=== PATIENT | female | born 1985 | race Caucasian/White ===

== ENCOUNTER 2016-07-24 01:30 | Emergency (ER) | payer MEDICAID ==
[~2016-07-24] VITALS: Ht 154.9 cm; Wt 117.5 kg
[~2016-07-24 01:30] MED LIST: BACTDS PO; CEPH-443 PO; HYDR-906 PO; IBUP-1542 PO; ONDA4TAB14 PO; PREN1TAB17 PO
[2016-07-24 01:33] VITALS: Ht 154.9 cm; Wt 117.5 kg
[2016-07-24] MEDS ORDERED: morphine 4 MG/ML VIAL IV STA (02:07)
[2016-07-24] MEDS ORDERED: SOD CHLORIDE 0.9% 1,000 ML IV STA (02:07)
[2016-07-24] MEDS ORDERED: ONDANSETRON 4 MG INJ IV STA (02:07)
[2016-07-24 02:32] VITALS: BP 98/64; PULSE 80; RESP 16
--- NOTE | 2016-07-24 02:45 | RADRPT ---
PROCEDURE: Abdominal ultrasound, limited. CLINICAL INDICATION: Abdominal pain. TECHNIQUE: Multiple real-time images were acquired of the patient's right upper abdomen utilizing a high resolution transducer. COMPARISON: 02/23/2016. FINDINGS: The liver demonstrates normal echogenicity and size measuring 16.4 cm. There is no focal mass or in trahepatic biliary ductal dilatation. The portal vein is patent. The gallbladder is not distended. Multiple echogenic gallstones are identified. There is no pericholecystic fluid or gallbladder wa ll thickening. The common bile duct measures 4.5 mm in maximal dimension. The visualized portions of the pancreas are unremarkable. No free fluid is identified. The right kidney is normal size and echogenicity measuring 10.5 cm. There is no focal renal mass or echogenic calculus identified. There is no obstructive uropathy. IMPRESSION: Cholelithiasis without ultrasound evidence of cholecystitis. .Jw Moore MD, MD Date Time Electronically viewed and signed by .Jw Moore MD, on 07/24/2016 02:45 .T/
--- NOTE | 2016-07-24 02:49 | ERD ---
ER Documentation Chief Complaint Date/Time DATE: 07/24/16 TIME: 02:48 Chief Complaint right upper abdominal pain with radiation to mid back and nausea [employer] EXEC[employer]IVE HPI This is a 31 year from radical abdominal pain radiation to mid back. She had mild nausea as well. No fevers or chills. No other current complaints. Pain is mild to moderate in intensity. Located in the right upper quadrant pain radiates to back. No other current problems. ROS All systems reviewed and are negative except as per history of present illness. Medications Home Meds Active Scripts Ibuprofen* (Motrin*) 600 Mg Tab, 600 MG PO Q6, #15 TAB Prov:BRENDAN CALI MD 05/22/16 Cephalexin* (Keflex*) 500 Mg Capsule, 500 MG PO QID for 7 Days, CAP Prov:BRENDAN CALI MD 05/22/16 Sulfamethoxazole-Trimethoprim* (Bactrim* DS) 800-160 Mg Tab, 1 TAB PO BID for 7 Days, TAB Prov:BRENDAN CALI MD 05/22/16 Ondansetron (Ondansetron Odt) 4 Mg Tab.rapdis, 4 MG PO Q6H Y for NAUSEA AND/OR VOMITING, #14 TAB Prov:YOLY BCUIO PA-C 02/23/16 Hydrocodone/Acetaminophen ([place] 5-325 Tablet) 1 Each Tablet, 1 EACH PO Q6 Y for PAIN, #30 TAB Prov:YOLY BUCIO PA-C 02/23/16 Reported Medications Vit-Iron Fumarate-FA ( Tablet) 1 Each Tablet, 1 EACH PO DAILY 03/09/13 Vit-Iron Fumarate-FA ( Tablet) 1 Each Tablet, 1 EACH PO DAILY 01/09/13 Allergies Allergies: Coded Allergies: No Known Allergies (Verified Allergy, Mild, 03/09/13) PMhx/Soc History of Surgery: Yes (c/section x3) Anesthesia Reaction: No Hx Neurological Disorder: No Hx Respiratory Disorders: No Hx Cardiac Disorders: No Hx Psychiatric Problems: No Hx Miscellaneous Medical Probl: Yes (Gallstones) Hx Alcohol Use: No Hx Substance Use: No Hx Tobacco Use: No Smoking Status: Never smoker Physical Exam Vitals Vital Signs Date Time Temp Pulse Resp B/P Pulse Ox O2 Delivery O2 Flow Rate FiO2 07/24/16 02:32 80 16 98/64 100 Room Air 07/24/16 01:33 98.8 84 20 94/58 100 Physical Exam Const: [] Head: Atraumatic Eyes: Normal Conjunctiva ENT: Normal External Ears, Nose and Mouth. Neck: Full range of motion..~ No meningismus. Resp: Clear to auscultation bilaterally Cardio: Regular rate and rhythm, no murmurs Abd: Soft, non tender, non distended. Normal bowel sounds Skin: No petechiae or rashes Back: No midline or flank tenderness Ext: No cyanosis, or edema Neur: Awake and alert Psych: Normal Mood and Affect Results 24 hrs Current Medications Medications (Trade) Dose Ordered Sig/Laith Route PRN Reason Start Time Stop Time Status Last Admin Dose Admin Sodium Chloride (NS) 1,000 ml @ 1,000 mls/hr Q1H STAT IV 07/24/16 02:07 07/24/16 03:06 07/24/16 02:22 Morphine Sulfate (morphine) 4 mg ONCE STAT IV 07/24/16 02:07 07/24/16 02:08 DC 07/24/16 02:23 Ondansetron HCl (Zofran Inj) 4 mg ONCE STAT IV 07/24/16 02:07 07/24/16 02:08 DC 07/24/16 02:22 Procedures/MDM Medical decision-making: Patient has gallstones and biliary colic. No evidence of cholecystitis. Patient will be discharged home. Return in 8 hours for serial abdominal exams. Departure Diagnosis: Primary Impression: Gallstones Condition: Stable ELIJAH CHATTERJEE Jul 24, 2016 02:49
[2016-07-24 02:50] LABS: BASOPHILS % 0.4 % (0.0-2.0); EOSINOPHILS # 0.2 10^3/ul (0.0-0.5); EOSINOPHILS % 2.1 % (0.0-7.0); HEMATOCRIT 40.1 % (37.0-47.0); HEMOGLOBIN 13.5 g/dl (12.0-16.0); LYMPHOCYTES # 2.4 10^3/ul (0.8-2.9); LYMPHOCYTES % 26.1 % (15.0-51.0); MEAN CORPUSCULAR HEMOGLOBIN 28.6 pg (29.0-33.0); MEAN CORPUSCULAR HGB CONC 33.6 g/dl (32.0-37.0); MEAN CORPUSCULAR VOLUME 85.1 fl (82.0-101.0); MEAN PLATELET VOLUME 8.8 fl (7.4-10.4); MONOCYTE # 0.6 10^3/ul (0.3-0.9); MONOCYTES % 6.7 % (0.0-11.0); NEUTROPHIL # 5.9 10^3/ul (1.6-7.5); NEUTROPHILS % 64.7 % (39.0-77.0); PLATELET COUNT 208 10^3/UL (140-440); RED BLOOD COUNT 4.71 10^6/ul (4.20-5.40); RED CELL DISTRIBUTION WIDTH 13.2 % (11.5-14.5); UNCORRECTED WBC 9.1 10^3/ul (4.8-10.8); WHITE BLOOD COUNT 9.1 10^3/ul (4.8-10.8)
[2016-07-24] MEDS ORDERED: TRAM50TA2 PO (02:50)
[2016-07-24] MEDS ORDERED: ONDA4TAB14 PO (02:50)
[2016-07-24 02:57] LABS: ADD UMIC YES; URINE BILIRUBIN (Dip) NEGATIVE (NEGATIVE); URINE BLOOD (Dip) TRACE (NEGATIVE); URINE COLOR LT. YELLOW (YELLOW); URINE GLUCOSE (Dip) NEGATIVE (NEGATIVE); URINE KETONES (Dip) NEGATIVE (NEGATIVE); URINE LEUKOCYTE ESTERASE (Dip) 2+ (NEGATIVE); URINE NITRITE (Dip) NEGATIVE (NEGATIVE); URINE TOTAL PROTEIN (Dip) NEGATIVE (NEGATIVE); URINE UROBILINOGEN (Dip) 0.2 E.U./dL (0.1-1.0)
[2016-07-24 03:00] LABS: CONDITION 1
[2016-07-24 03:01] LABS: ALBUMIN 3.6 g/dl (3.3-4.9)
[2016-07-24 03:02] LABS: POTASSIUM 3.6 mmol/L (3.5-5.1)
[2016-07-24 03:04] LABS: BILIRUBIN,INDIRECT 0.2 mg/dl (0-1.1); BILIRUBIN,TOTAL 0.2 mg/dl (0.2-1.3); CREATININE 0.74 mg/dl (0.44-1.00)
[2016-07-24 03:05] LABS: CALCIUM 8.7 mg/dl (8.4-10.2); TOTAL PROTEIN 7.2 g/dl (6.1-8.1)
[2016-07-24 03:08] LABS: BACTERIA,URINE FEW; SQUAMOUS EPITHELIAL CELL,UR MODERATE; URINE RBCS 0-2 /HPF (0)
== END 2016-07-24 04:00 | disposition home or self-care (01) ==
LOC: E/R 01:30
DX: K80.20 Calculus of gallbladder without cholecystitis without obstruction (principal); R11.0 Nausea; R40.2142 Coma scale, eyes open, spontaneous, at arrival to emergency department; R40.2252 Coma scale, best verbal response, oriented, at arrival to emergency department; R40.2362 Coma scale, best motor response, obeys commands, at arrival to emergency department
CPT/HCPCS: 36415; 76705; 80053; 81001; 83690; 85025; 96374; 96375; J2270; J2405; J7030; Z7502; 81003

== ENCOUNTER 2017-04-04 13:02 | Emergency (ER) | END 2017-04-04 16:15 | disposition home or self-care (01) | DX: T22.211A Burn of second degree of right forearm, initial encounter (principal); X19.XXXA Contact with other heat and hot substances, initial encounter; Y92.9 Unspecified place or not applicable; Z23 Encounter for immunization | CPT/HCPCS: 90471; 90715; Z7502 ==

== ENCOUNTER 2018-02-26 19:52 | Emergency (ER) | END 2018-02-26 22:49 | disposition home or self-care (01) ==

== ENCOUNTER 2018-11-15 22:32 | Emergency (ER) | payer SELFPAY ==
[~2018-11-15] VITALS: Ht 154.9 cm; Wt 98.1 kg
[~2018-11-15 22:32] MED LIST changes: +BACI28.34 TOP; +FIORICET PO; +HYDR-4011 PO; -HYDR-906 PO; +TRAM50TA2 PO
[2018-11-15 22:36] VITALS: Ht 154.9 cm; Wt 98.1 kg
[2018-11-16] MEDS ORDERED: ONDANSETRON (ODT) 4 MG TAB ODT STA (01:42)
--- NOTE | 2018-11-16 01:42 | ERD ---
ER Documentation Chief Complaint Chief Complaint AP/body aches/vomiting/diarrhea/fever x1 day, tylenol @ 5PM/motrin @ 7PM HPI This is a 33-year-old female who presents here in the emergency department with complaints of left sided facial pain, sinus congestion, diarrhea. Stated that she is not sure if the churus that she ate yesterday made her feel like this. LMP: Stated it was 3 weeks ago. G3, . Denies headache, head injury, loss of consciousness, dizziness, neck pain, neck stiffness, throat pain, difficulty swallowing, difficulty breathing lying flat, shoulder pain, chest pain, back pain, abdominal pain, nausea, vomiting, constipation, diarrhea, urinary symptoms, or possibility being , loss of bowel and bladder control, trauma, injury, falls, difficulty walking due to pain, numbness or tingling sensation, calf pain, recent travel, recent major surgery in the last 3 weeks, calf pain, recent long travel, recent exposure to any illness, recent antibiotic use in the last 3 months, fever, chills, seizures. Past medical history: Surgical history: Social: Denies smoking, use of alcoholic beverages, use of illegal drugs. ROS All systems reviewed and are negative except as per history of present illness. Medications Home Meds Active Scripts Diphenoxylate HCl/Atropine (Lomotil 2.5-0.025 mg Tablet) 1 Each Tablet, 1 TAB PO QID PRN for DIARRHEA, #10 TAB Prov:JOSE RILASIMRAN LARSEN F 11/16/18 Amoxicillin* (Amoxicillin*) 500 Mg Cap, 500 MG PO TID for 10 Days, CAP Prov:PASILABANSIMRAN F 11/16/18 Ondansetron Hcl* (Zofran*) 4 Mg Tablet, 4 MG PO Q8H PRN for NAUSEA AND/OR VOMITING, #30 TAB Prov:PASILAVISH LARSENAR F 11/16/18 Ibuprofen* (Motrin*) 800 Mg Tab, 800 MG PO Q6H PRN for PAIN AND OR ELEVATED TEMP , #30 TAB Prov:PASILABAN,VISHAR F 11/16/18 Acetamin/Butalbital/Caffeine* (Fioricet*) [id number] Tab, 1 TAB PO Q6H PRN for PAIN, #30 TAB Prov:ROME ST 02/26/18 Bacitracin* (Bacitracin Zinc Oint*) 28.35 Gm Oint, 1 APPLIC TOP BID, #1 TUB APPLI TO Prov:GABRIELE CHRISTINA PA-C 04/04/17 Ondansetron (Ondansetron Odt) 4 Mg Tab.rapdis, 4 MG PO Q6H PRN for NAUSEA AND/OR VOMITING, #10 TAB Prov:MILANNAZELIJAH S. 07/24/16 Tramadol HCl (Tramadol HCl) 50 Mg Tablet, 50 MG PO Q4 PRN for PAIN, #20 TAB Prov:MOGHADAMAGUSTINELIJAH S. 07/24/16 Ibuprofen* (Motrin*) 600 Mg Tab, 600 MG PO Q6, #15 TAB Prov:BRENDAN CALI MD 05/22/16 Cephalexin* (Keflex*) 500 Mg Capsule, 500 MG PO QID for 7 Days, CAP Prov:BRENDAN CALI MD 05/22/16 Sulfamethoxazole-Trimethoprim* (Bactrim* DS) 800-160 Mg Tab, 1 TAB PO BID for 7 Days, TAB Prov:BRENDAN CALI MD 05/22/16 Ondansetron (Ondansetron Odt) 4 Mg Tab.rapdis, 4 MG PO Q6H PRN for NAUSEA AND/OR VOMITING, #14 TAB Prov:YOLY BUCIO PA-C 02/23/16 Hydrocodone/Acetaminophen ([place] 5-325 Tablet) 1 Each Tablet, 1 EACH PO Q6 PRN for PAIN, #30 TAB Prov:YOLY BUCIO PA-C 02/23/16 Reported Medications Vit-Iron Fumarate-FA ( Tablet) 1 Each Tablet, 1 EACH PO DAILY 03/09/13 Vit-Iron Fumarate-FA ( Tablet) 1 Each Tablet, 1 EACH PO DAILY 01/09/13 Allergies Allergies: Coded Allergies: No Known Allergies (Verified Allergy, Mild, 02/26/18) PMhx/Soc History of Surgery: Yes (c/section x3) Anesthesia Reaction: No Hx Neurological Disorder: No Hx Respiratory Disorders: No Hx Cardiac Disorders: No Hx Psychiatric Problems: No Hx Miscellaneous Medical Probl: Yes (Gallstones) Hx Alcohol Use: No Hx Substance Use: No Hx Tobacco Use: No Smoking Status: Never smoker Physical Exam Vitals Physical Exam Const: No acute distress Head: Atraumatic Eyes: Normal Conjunctiva ENT: Normal External Ears, Nose and Mouth. Bilateral ears: TMs are not erythematous. No bleeding. No discharge. No hearing loss. Nose: There is left-sided frontal and maxillary sinus tenderness to palpation. No facial droop. Throat: Uvula is in midline and nondisplaced. Tonsils are +1 bilaterally without redness without exudates. Tolerating secretions. Patent airway. Speaks full and clear sentences. Neck: Full range of motion. No meningismus. No nuchal rigidity. No signs of meningeal irritation. Resp: Clear to auscultation bilaterally Cardio: Regular rate and rhythm, no murmurs Abd: Soft, non tender, non distended. Normal bowel sounds Skin: No petechiae or rashes Back: No midline or flank tenderness Ext: No cyanosis, or edema Neur: Awake and alert. No neurological deficits. Psych: Normal Mood and Affect Results 24 hrs Laboratory Tests Test 11/16/18 01:56 Bedside Urine pH (LAB) 6.0 Bedside Urine Protein (LAB) 2+ Bedside Urine Glucose (UA) Negative Bedside Urine Ketones (LAB) Negative Bedside Urine Blood 2+ Bedside Urine Nitrite (LAB) Negative Bedside Urine Leukocyte Esterase (L Negative POC Beta HCG, Qualitative NEGATIVE Current Medications Medications Dose Sig/Laith Start Time Status Last (Trade) Ordered Route PRN Stop Time Admin Dose Reason Admin Ondansetron 4 mg ONCE STAT 11/16/18 DC 11/16/18 HCl (Zofran ODT 01:42 01:56 Odt) 11/16/18 01:45 Ibuprofen 800 mg ONCE ONCE 11/16/18 DC 11/16/18 (Motrin) PO 02:00 01:56 11/16/18 02:01 1 tab ONCE ONCE 11/16/18 DC 11/16/18 Acetaminophen PO 02:30 02:22 / 11/16/18 02:31 Hydrocodone Bitart ([place] ()) Procedures/MDM Diagnostic tests: POC urine : Negative. POC urine dipstick: Reviewed. Urinalysis: Sent. Treatment: Motrin. Zofran. P.o. challenge. Re-evaluation: No episode of emesis here in the emergency department. No nuchal rigidity. No abdominal tenderness. No neurological deficit. Ambulatory with steady gait. Stated that she feels much better at this time and that she is ready to go home. Differential diagnosis I have low suspicion for sepsis, pancreatitis, cholecystitis, diverticulitis, appendicitis, bowel obstruction, pyelonephritis, septic stone, obstructing kidney stones. Final diagnosis: Sinusitis. Gastroenteritis. Prescription: Motrin. Amoxicillin. Zofran. Follow-up with PCP in the next 24-48 hours. Come back here in the emergency department for any new symptoms or any worsening symptoms. All questions and concerns were answered. Patient and family members verbalized understanding and agreed with plan of care. Hemodynamically stable on discharge. Departure Diagnosis: Primary Impression: Multiple complaints Additional Impressions: Diarrhea Food poisoning Sinusitis Condition: Stable Additional Instructions: Follow-up with PCP in the next 24-48 hours. Come back here in the emergency department for any new symptoms or any worsening symptoms. SIMRAN CONNELL November 16, 2018 01:42
[2018-11-16] MEDS ORDERED: IBUPROFEN 800 MG TAB PO ONE (02:00)
[2018-11-16] MEDS ORDERED: IBUP800T48 PO (02:13)
[2018-11-16] MEDS ORDERED: AMOX500C2 PO (02:13)
[2018-11-16] MEDS ORDERED: DIPH1TAB PO (02:13)
[2018-11-16] MEDS ORDERED: ONDA4TAB8 PO (02:13)
[2018-11-16] MEDS ORDERED: HYDROCODONE/APAP (10/325) TAB PO ONE (02:30)
[2018-11-16 02:47] VITALS: BP 121/72; PULSE 87; RESP 16
== END 2018-11-16 02:49 | disposition home or self-care (01) ==
LOC: FTE 22:32
DX: T62.91XA Toxic effect of unspecified noxious substance eaten as food, accidental (unintentional), initial encounter (principal); J32.9 Chronic sinusitis, unspecified; K52.9 Noninfective gastroenteritis and colitis, unspecified
CPT/HCPCS: 81003; 81025; 99283